=== PATIENT | male | born 1975 | race Caucasian/White ===

== ENCOUNTER 2024-05-20 07:58 | Day surgery (SDC) | payer OTHER, SELFPAY ==
[2024-05-20 08:13] VITALS: BP 109/71; PULSE 65; RESP 20; TEMP 36.8; O2SAT 96
[2024-05-20] MEDS: Lactated Ringers 1,000 ML 80 ML IV (08:39)
--- NOTE | 2024-05-20 09:52 | W.ANESPRE ---
General Info Date of Service Date Performed: 05/20/24 Height: 5 ft 11 in Weight: 67.2 kg Body Mass Index (BMI): 20.6 Surgical Procedure: Operation Date: 05/20/24 10:10 Proposed Procedure Side Surgeon p Cystoscopy/Laser/Retrograde/Ureteroscopy/ Possible Stent Right Alfred Malave MD Meds Allergies and Home Medications Allergies Allergy/AdvReac Type Severity Reaction Status Date / Time No Known Allergies Allergy Verified 05/20/24 08:12 Home Medication ?Medication ?Instructions ?Recorded famotidine 20 mg tablet 20 mg PO DAILY 05/14/24 tamsulosin 0.4 mg capsule 0.4 mg PO DAILY 05/14/24 Current Visit Medications: Current Medications Generic Name Dose Route Start Last Admin Trade Name Freq PRN Reason Stop Dose Admin Ringer's Solution 1,000 mls @ 80 mls/hr 05/20/24 06:00 05/20/24 08:39 IV 05/20/24 23:59 80 mls/hr INFUSION RACHEL Administration Cefazolin Sodium/Dextrose 2 gm in 50 mls @ 100 mls/hr 05/20/24 06:00 Ancef Duplex IVPB 05/20/24 23:59 PREOP RACHEL IV Miscellaneous Supplies 1 each 05/20/24 06:00 Iv Access IV 05/20/24 23:59 DIRECTED RACHEL Sodium Chloride 0 ml 05/20/24 06:00 Normal Saline Flush 10 Ml Syr IV 05/20/24 23:59 PRN PRN Sodium Chloride 0 ml 05/20/24 06:00 Normal Saline 10 Ml Vial IJ 05/20/24 23:59 DIRECTED PRN Sterile Water 0 ml 05/20/24 06:00 Water,Injection,Sterile 10 Ml Vial IJ 05/20/24 23:59 DIRECTED PRN PFSH Active Problems Active Problems: Problem Status Onset Code Right distal ureteral calculus Acute N20.1 Medical History Medical History (Updated 05/20/24 @ 08:15 by Nathaly Gutierrez RN) Fear of flying GERD (gastroesophageal reflux disease) Surgical History Surgical History Hx of wisdom tooth extraction Tobacco Smoking/Tobacco Use Status: Current-Occasional Passive smoking exposure: Yes Alcohol Alcohol Intake: current Alcohol intake frequency: a few times a month Substance Use Substance use: Never Substance use type: does not use Vital Signs and Lab Results Vital Signs Most Recent Vital Signs in EMR: Most Recent Vital Signs Temp Pulse Resp BP Pulse Ox 36.8 C 65 20 109/71 96 05/20/24 08:13 05/20/24 08:13 05/20/24 08:13 05/20/24 08:13 05/20/24 08:13 Lab Results Blood Type / Crossmatch: No Data to Display Complete Blood Count: No Data to Display Complete Metabolic Panel: No Data to Display Liver Function Panel: No Data to Display Coagulation Panel: No Data to Display Cardiac Panel: No Data to Display Arterial Blood Gas: No Data to Display Venous Blood Gas: No Data to Display Pancreas Panel: No Data to Display Thyroid Panel: No Data to Display Infectious Disease: No Data to Display Blood Cultures: No Data to Display Toxicology Panel: No Data to Display Anesthesia Assessment and Plan Anesthesia History Personal History: No History of Anesthesia Complications Family History: No Family History of Anesthesia Complications Exercise Tolerance Exercise Tolerance: Metabolic Equivalents>4 Pertinent Negatives Pertinent Negatives: No Symptoms of GERD, No Major Cardiovascular Symptoms or Complaints, No Major Pulmonary Symptoms or Complaints and No History of CVA/TIA Cardiac & Pulmonary Exam Cardiac Exam: Normal S1/S2 Heart Sounds Pulmonary Exam: Clear Bilateral Breath Sounds Implantable Cardiac Device Does patient have a Pacemaker or an ICD?: No Airway Exam Known Difficult Airway: No Mallampati Class: 2 Mouth Opening: Normal (> 3cm) Thyromental Distance: Greater than 3 cm Neck Range of Motion: Full ROM Neck Circumference: Normal Teeth Condition: Normal Dentition ASA Classification ASA Score: ASA 2 Emergency Case?: No NPO Status NPO Status: NPO Clears >2 hours, Solids >8 hours Anesthesia Plan Resuscitation Status: Full Code Anesthesia Technique: General Anesthesia Airway Planned: Natural Airway Monitors Used: Standard Monitors Preoperative Comments:: GERD well controlled on famotidine
[2024-05-20 09:53] VITALS: BMI 20.6
--- NOTE | 2024-05-20 10:29 | W.PM.HP.N ---
Date of service: 05/20/24 Time of Service: 10:29 Assessment and Plan Assessment and plan (1) Right distal ureteral calculus: Status: Acute Assessment and plan: His stone has not progressed, so we will make arrangements for cystoscopy, retograde pyelogram, right ureteroscopy and possible holmium laser lithotripsy of his stone History of Present Illness History of Present Illness Chief Complaint: Right ureteral stone Narrative: This is a 48-year-old gentleman referred by Jake Nieto after recent diagnosis of a right ureteral stone. Mr. Hall has no prior history of kidney stones. He initially had some fairly severe right sided pain associated with nausea about 2-1/2 weeks ago. The pain woke him from his sleep and he could not get comfortable. The pain lasted about 4 hours before resolving. He then remained symptom-free for about a week before he had a similar episode of pain. Currently, he is not having severe pain but does have the sensation of needing to void even with small amounts in his bladder. He is not having any documented fevers or chills although he did have a chill sensation with the first episode of pain 2-1/2 weeks ago. Mr. Hall does have a family history of kidney stones. He has never had any type of surgery at all let alone urologic surgery. He has no history of metabolic issues such as gout or hyperparathyroidism. Review of Systems Narrative: No fevers or chills No vision change or dysphasia No diabetes or thyroid dysfunction No shortness of breath, cough or hemoptysis No chest pain or palpitations GERD that is well controlled. No hepatitis, ulcers, jaundice, diarrhea or constipation No seizures, strokes or peripheral neuropathy No bleeding disorders or anemia No gout PFSH All Active Problems (Updated 05/20/24 @ 08:15 by Nathaly Gutierrez RN) Right distal ureteral calculus (Acute) Medical History (Updated 05/20/24 @ 08:15 by Nathaly Gutierrez RN) Fear of flying GERD (gastroesophageal reflux disease) Surgical History Hx of wisdom tooth extraction Social History (Updated 05/14/24 @ 11:49 by Alfred Malave MD) Smoking/Tobacco Use Status: Current-Occasional Smoking risk assessment performed?: Yes Alcohol Intake: current Alcohol Intake frequency: a few times a month Drug use: Never Substance use type: does not use Housing: house Do you feel safe at home: Yes Do you feel safe in your relationship?: Yes Additional Social history: UT[employer] Meds Allergies and Home Medications Allergies Allergy/AdvReac Type Severity Reaction Status Date / Time No Known Allergies Allergy Verified 05/20/24 08:12 Home Medications ?Medication ?Instructions ?Recorded ?Confirmed ?Type famotidine 20 mg tablet 20 mg PO DAILY 05/14/24 05/20/24 History tamsulosin 0.4 mg capsule 0.4 mg PO DAILY 05/14/24 05/20/24 History Exam Const General: cooperative Neck Neck: supple Resp Effort & Inspection: normal respiratory effort Auscultation: clear to auscultation bilaterally Cardio Rate: regular rate Rhythm: regular rhythm GI Palpation: soft and no masses Neuro General: patient alert, patient awake and patient oriented x3 Results Last Vital Signs Temp 36.8 C 05/20/24 08:13 Pulse 65 05/20/24 08:13 Resp 20 05/20/24 08:13 BP 109/71 05/20/24 08:13 Pulse Ox 96 05/20/24 08:13 Time Spent Time spent with Patient: <40 minutes Time was spent: other
[2024-05-20] MEDS: ceFAZolin 2 GM/50 ML BAG IVPB (11:13)
[2024-05-20] MEDS: Omnipaque 300 MG/ML 50 ML BTL (11:30)
[2024-05-20] MEDS: Lidocaine 2% Jelly 11 ML SYR (11:32)
--- NOTE | 2024-05-20 11:50 | DI.RAD_ITS ---
Exam(s) XR RETROGRADE IN OR EXAM: XR RETROGRADE IN OR CLINICAL HISTORY: Right distal ureteral calculus TECHNIQUE: 2D and realtime digital imaging was performed. CONTRAST MATERIAL: Refer to procedure report. COMPARISON: No exams were available for comparison FINDINGS: Fluoroscopy was provided for Dr. Malave during the performance of a retrograde evaluation of the [place] l collecting system. Please refer to the procedure report for complete details. Ka,r=3.43 mGy IMPRESSION: RADIATION DOSE DELIVERED: 0.0 0.0 0
--- NOTE | 2024-05-20 11:54 | W.PM.DSUDISC ---
Date of service: 05/20/24 Discharge Plan Disposition Patient Disposition: Home Condition: Stable Discharge Details Attending Provider: Alfred Malave Primary Care Provider: Macario Nieto Home Meds and New Rx's Prescriptions: No Action famotidine 20 mg tablet 20 mg PO DAILY tamsulosin 0.4 mg capsule 0.4 mg PO DAILY Discharge Instructions Additional Instructions: There is no need to starin the urine - your stone has been removed You have a ureteral stent in place. It is not unusual to see blood in the urine and have discomfort when you urinate as long as the stent is in place. The stent can be removed in about 5 days You will need a renal ultrasound and followup appt (to discuss the stone's chemical composition) in about 6 weeks. If it is easier for you, the ultrasound can be done at [facility] and the appointment can be by phone Activity:: Activity as Tolerated Shower/Bathe:: 24 hours Diet:: As Tolerated Discharge Orders Discharge Orders: Discharge Order (Routine); Ordered 05/20/24 Ordered By: Alfred Malave DS: Diagnosis Discharge Diagnosis (1) Right distal ureteral calculus: Status: Acute
[2024-05-20 12:00] VITALS: BP 88/64; PULSE 65; RESP 17; TEMP 36.6; O2SAT 95
--- NOTE | 2024-05-20 12:01 | ROE_ITS ---
Operative Note Operative Note PRE-OP DIAGNOSIS: Right ureteral stone POST-OP DIAGNOSIS: same PROCEDURE: cystoscopy, right retrograde pyelogram, right ureteral dilation, extract right ureteral stone, insert right ureteral stent SURGEON: Alfred Malave ANESTHESIA TYPE: Local By Surgeon and General:No Airway Refer to Anesthesia Record ESTIMATED BLOOD LOSS: 5 PATHOLOGY: other (stone for chemical analysis) COMPLICATIONS: None Patient was transported to: same day Patient's condition: stable Implants: 6 [place] by 22 to 30 cm right ureteral stent with safety string attached Indications: This is a 48-year-old gentleman who has no prior history of kidney stones. He developed symptoms consistent with right renal colic and was evaluated with a noncontrast CT scan at an outside hospital. The scan demonstrated an obstructing right distal ureteral stone. He presents for stone manipulation. Findings: right distal ureteral stone Procedure Description: The patient was given antibiotics and brought to the operating room on 05/20/2024. After successful induction of general anesthesia without intubation, he was placed in the dorsal lithotomy position. His genitalia was prepped and draped. 2% Xylocaine jelly was instilled into the urethra to act as a local anesthetic. A 22 [place] rigid cystoscope was passed through the urethra into the bladder. The urethra and bladder were inspected with the 30 degree lens. The pendulous, bulbar and membranous urethra appeared normal with no strictures. The prostatic urethra showed mild lateral lobe enlargement but no significant median lobe. The bladder neck was then entered and the bladder mucosa was inspected. Both ureteral orifices were identified. No blood was seen coming from either side. There was no erythema around the ureteral orifices, but the right orifice did appear to be a bit more edematous than the left. I was able to cannulate the right orifice with a 5 [place] access catheter and I injected Omnipaque under fluoroscopic guidance. We outlined a filling defect in the right distal ureter consistent with his stone. I was unable to pass the semirigid ureteroscope into the right ureter initially, so I used a 4 cm UroMax balloon to dilate the distal ureter. Once I did so, I was able to pass the semirigid ureteroscope. I have visualized the stone in the distal ureter and grasped the stone with a Aurelia stone basket. The stone was then extracted and sent to the laboratory for chemical analysis. Because of the ureteral dilation, we elected to place a ureteral stent. I chose a 6 [place] variable length stent and advanced it over the guidewire. The stent was positioned such that the proximal end was in the renal pelvis and the distal end was curled within the bladder. The safety string was left in place and brought through the patient's urethra. The string was anchored to the dorsum of the penis using Steri-Strips. The patient tolerated this procedure well with no complications. Date of Procedure: 05/20/24
[2024-05-20] MEDS: Phenazopyridine 200 MG TAB PO (12:26)
[2024-05-20 12:33] VITALS: BP 92/70; PULSE 68; RESP 20; TEMP 36.6; O2SAT 98
--- NOTE | 2024-05-20 12:43 | W.ANESPOSTOP ---
Postoperative Evaluation Date, Time and Location Date Performed: 05/20/24 Time Performed: 12:43 Patient Location: Day Surgery Unit Vital Signs Most Recent Imported Vital Signs: Most Recent Vital Signs Temp Pulse Resp BP Pulse Ox 36.6 C 68 20 92/70 L 98 05/20/24 12:33 05/20/24 12:33 05/20/24 12:33 05/20/24 12:33 05/20/24 12:33 Assessment Mental Status: Awake (Alert & Oriented to Patient Baseline) Airway and Respiratory Function: Patent airway with normal (patient baseline) respiratory exam Cardiovascular Function: Hemodynamically Stable Hydration Status: Adequately Hydrated Nausea & Vomiting: No Nausea or Vomiting Pain: Pt. Denies Any Pain Peripheral Nerve Block: Patient did not receive a nerve block
[2024-06-01 15:09] LABS: Source: Right Ureter
== END 2024-05-20 13:20 | disposition home or self-care (01) ==
LOC: SUR 07:58
PROVIDERS: Visit Provider Urology
PROC: (CPT 52320; principal; 2024-05-20 10:00)
DX: N20.1 Calculus of ureter (principal)
CPT/HCPCS: 52320; 52341; 52332; 74420; 82365; J0131; J0690; J1100; J1885; J2003; J2250; J2405; J2704; Q9967